=== PATIENT | female | born 1995 | race Caucasian/White ===

== ENCOUNTER 2017-08-07 13:50 | Emergency (ER) | payer BC ==
[2017-08-07] MEDS ORDERED: Sodium Chloride 0.9% 1,000 ML IV ONE (14:04)
[2017-08-07] MEDS ORDERED: Insulin Regular, Human 100 Units/ML 3 ML Vial IVPUSH ONE (14:30)
[2017-08-07] MEDS ORDERED: NS + KCl 20mEq/L 1,000 ML IV SCH (15:30)
--- NOTE | 2017-08-07 18:04 | EDM.PDOC ---
ED HPI GENERAL MEDICAL PROBLEM - General Chief Complaint: Diabetic Complaint Stated Complaint: CHEST PAIN Time Seen by Provider: 08/07/17 13:52 Source of Information: Reports: Patient, Family History Limitations: Reports: No Limitations - History of Present Illness INITIAL COMMENTS - FREE TEXT/NARRATIVE: Patient is a 22 year old woman who has had Type 1 Diabetes since age 10. Last night her Dad came to stay over night with her at her college apartment to go to the football game today. They did not eat breakfast and had not eaten lunch when they got to the football game. She was cold and she drank a hot cup of cappacino coffee very quickly. Soon after that she got chest pain and felt very anxious. That is when she came to the hospital. Her initial glucose on the glucometer was 550 and her initial blood glucose by venipuncture was over 725. She was very cold and diaphoretic and felt awful when she came in. Onset: Today, Sudden Onset Date: 08/07/17 Onset Time: 13:30 Duration: Minutes: (30) Location: Reports: Chest, Generalized Quality: Reports: Ache Severity: Moderate Improves with: Reports: None Worsens with: Reports: None Context: Reports: Other (Type 1 Diabetic not eating normally nor taking her Insulin today.) Associated Symptoms: Reports: Diaphoresis - Related Data Allergies Allergy/AdvReac Type Severity Reaction Status Date / Time naproxen [From Naprosyn] Allergy Rash Verified 08/07/17 18:18 Home Meds: Home Meds Enalapril Maleate 1 tab PO DAILY 08/07/17 [History] Insulin Aspart [Novolog Flexpen] 1 unit SQ TID MDD 45 08/07/17 [History] Insulin Glarg,Human.Rec.Analog [Lantus Solostar] 18 units SQ DAILY 08/07/17 [ History] Levothyroxine 25 mcg PO ACBREAKFAST 08/07/17 [History] Past Medical History Endocrine/Metabolic History: Reports: Diabetes, Type I, Hyperthyroidism Social & Family History - Tobacco Use Smoking Status *Q: Never Smoker Second Hand Smoke Exposure: No - Caffeine Use Caffeine Use: Reports: Coffee - Recreational Drug Use Recreational Drug Use: No ED ROS GENERAL - Review of Systems Review Of Systems: See Below Constitutional: Reports: Weakness, Decreased Appetite, Other (diaphoresis) HEENT: Reports: No Symptoms Respiratory: Reports: No Symptoms Cardiovascular: Reports: No Symptoms Endocrine: Reports: No Symptoms GI/Abdominal: Reports: No Symptoms : Reports: No Symptoms Musculoskeletal: Reports: No Symptoms Skin: Reports: Diaphoresis Neurological: Reports: No Symptoms Psychiatric: Reports: No Symptoms Hematologic/Lymphatic: Reports: No Symptoms ED EXAM GENERAL NO PERIP PULSE - Physical Exam Exam: See Below Exam Limited By: No Limitations General Appearance: Alert, WD/WN, No Apparent Distress Eye Exam: Bilateral Eye: EOMI, Normal Fundi, Normal Inspection, PERRL Ears: Normal External Exam, Normal Canal, Hearing Grossly Normal, Normal TMs Nose: Normal Inspection, Normal Mucosa, No Blood Throat/Mouth: Normal Inspection, Normal Lips, Normal Teeth, Normal Gums, Normal Oropharynx, Normal Voice, No Airway Compromise Head: Atraumatic Neck: Normal Inspection, Supple, Non-Tender, Full Range of Motion Respiratory/Chest: No Respiratory Distress Cardiovascular: Normal Peripheral Pulses, Regular Rate, Rhythm, No Edema, No Gallop, No JVD, No Murmur, No Rub GI/Abdominal: Normal Bowel Sounds Extremities: Normal Inspection, Normal Range of Motion, Non-Tender, Normal Capillary Refill, No Pedal Edema Neurological: Alert, Oriented, CN II-XII Intact, Normal Cognition, Normal Gait, Normal Reflexes, No Motor/Sensory Deficits Psychiatric: Normal Affect, Normal Mood Course - Vital Signs Text/Narrative:: Patient's labs showed she was in Ketoacidosis. She was given a Liter of Normal Saline bolus while we were awaiting our her lab results. Her lab results showed that she was in Diabetic Ketoacidosis. An Insulin drip was started along with 0.9 NS with 20 meq KCL at 500 ml/hour. Dr. Thompson will admit her into the ICU for close evaluation and treatment along with Telemetry in the ICU. Care has been turned over to Dr. Thompson. Last Recorded V/S: Last Vital Signs Temp 35.8 C 08/07/17 13:50 Pulse 133 H 08/07/17 13:50 Resp 26 H 08/07/17 13:50 BP 128/83 08/07/17 13:50 Pulse Ox 98 08/07/17 13:50 - Orders/Labs/Meds Orders: Active Orders 24 hr Category Date Time Status EKG Documentation Completion [RC] ASDIRECTED Care 08/07/17 14:03 Active CXR [Chest 1V Frontal] [CR] Stat Exams 08/07/17 14:04 Taken BASIC METABOLIC PANEL,BMP [CHEM] Stat Lab 08/07/17 19:00 Ordered Insulin Regular, Human [HumuLIN R] 100 unit Med 08/07/17 14:15 Active Sodium Chloride 0.9% [Normal Saline] 99 ml IV TITRATE NS + KCl 20mEq/L [Normal Saline with 20 mEq KCl] 1,000 Med 08/07/17 15:30 Active ml IV ASDIRECTED EKG 12 Lead [EK] Routine Ther 08/07/17 14:03 Ordered Medication Orders Insulin Human Regular 100 unit (/ Sodium Chloride) 100 mls @ 5.23 mls/hr IV TITRATE BRITTANEY; 0.1 UNITS/KG/HR PRN Reason: Protocol Last Titration: 08/07/17 17:35 Dose: 0.05 units/kg/hr, 2.9 mls/hr Titration: 08/07/17 16:02 Dose: 0.07 units/kg/hr, 3.9 mls/hr Admin: 08/07/17 14:42 Dose: 0.1 units/kg/hr, 5.23 mls/hr Potassium Chloride/Sodium Chloride (Normal Saline With 20 Meq Kcl) 1,000 mls @ 500 mls/hr IV ASDIRECTED BRITTANEY Last Admin: 08/07/17 15:45 Dose: 500 mls/hr Labs: Laboratory Tests 08/07/17 08/07/17 08/07/17 Range/Units 13:56 14:05 14:05 WBC 10.6 (4.5-12.0) X10-3/uL RBC 5.08 (3.23-5.20) x10(6)uL Hgb 14.5 (11.5-15.5) g/dL Hct 44.0 (30.0-51.3) % MCV 86.6 (80-96) fL MCH 28.6 (27.7-33.6) pg MCHC 33.0 (32.2-35.4) g/dL RDW 12.9 (11.5-15.5) % Plt Count 484 H (125-369) X10(3)uL MPV 8.3 (7.4-10.4) fL Neut % (Auto) 66.7 (46-82) % Lymph % (Auto) 25.2 (13-37) % [place] % (Auto) 6.5 (4-12) % Eos % (Auto) 1 (1.0-5.0) % Baso % (Auto) 1 (0-2) % Neut # (Auto) 7.0 (1.6-8.3) # Lymph # (Auto) 2.7 (0.6-5.0) # [place] # (Auto) 0.7 (0.0-1.3) # Eos # (Auto) 0.1 (0.0-0.8) # Baso # (Auto) 0.1 (0.0-0.2) # Sodium 128 L (135-145) mmol/L Potassium 4.4 (3.5-5.3) mmol/L Chloride 90 L (100-110) mmol/L Carbon Dioxide 15 L (23-29) mmol/L BUN 14 (5-20) mg/dL Creatinine 0.9 (0.6-1.3) mg/dL Est Cr Clr Drug Dosing TNP Estimated GFR (MDRD) > 60 (>60) BUN/Creatinine Ratio 15.6 (9-20) Glucose 717 H* (80-116) mg/dL POC Glucose > 500 H* (80-116) mg/dL Calcium 9.2 (8.6-10.2) mg/dL Total Bilirubin 2.1 H (0.1-1.3) mg/dL AST 21 (5-27) IU/L ALT 23 (14-26) IU/L Alkaline Phosphatase 75 (56-112) IU/L Troponin I (0.02-0.06) NG/ML Total Protein 7.8 (6.0-8.0) g/dL Albumin 4.3 (3.5-5.2) g/dL Globulin 3.5 g/dL Albumin/Globulin Ratio 1.2 HCG, Quant (2.0 - ) mIU/mL Urine Color (YELLOW) Urine Appearance (CLEAR) Urine pH (5.0-6.5) Ur Specific [place] (1.010-1.025) Urine Protein (NEGATIVE) mg/dL Urine Glucose (UA) (NEGATIVE) mg/dL Urine Ketones (NEGATIVE) mg/dL Urine Occult Blood (NEGATIVE) Urine Nitrite (NEGATIVE) Urine Bilirubin (NEGATIVE) Urine Urobilinogen (NEGATIVE) mg/dL Ur Leukocyte Esterase (NEGATIVE) Urine RBC (0) Urine WBC (0) Ur Squamous Epith Cells (NS,R,O) Urine Bacteria (NS) 08/07/17 08/07/17 08/07/17 Range/Units 14:05 14:05 15:25 WBC (4.5-12.0) X10-3/uL RBC (3.23-5.20) x10(6)uL Hgb (11.5-15.5) g/dL Hct (30.0-51.3) % MCV (80-96) fL MCH (27.7-33.6) pg MCHC (32.2-35.4) g/dL RDW (11.5-15.5) % Plt Count (125-369) X10(3)uL MPV (7.4-10.4) fL Neut % (Auto) (46-82) % Lymph % (Auto) (13-37) % [place] % (Auto) (4-12) % Eos % (Auto) (1.0-5.0) % Baso % (Auto) (0-2) % Neut # (Auto) (1.6-8.3) # Lymph # (Auto) (0.6-5.0) # [place] # (Auto) (0.0-1.3) # Eos # (Auto) (0.0-0.8) # Baso # (Auto) (0.0-0.2) # Sodium (135-145) mmol/L Potassium (3.5-5.3) mmol/L Chloride (100-110) mmol/L Carbon Dioxide (23-29) mmol/L BUN (5-20) mg/dL Creatinine (0.6-1.3) mg/dL Est Cr Clr Drug Dosing Estimated GFR (MDRD) (>60) BUN/Creatinine Ratio (9-20) Glucose (80-116) mg/dL POC Glucose > 500 H* (80-116) mg/dL Calcium (8.6-10.2) mg/dL Total Bilirubin (0.1-1.3) mg/dL AST (5-27) IU/L ALT (14-26) IU/L Alkaline Phosphatase (56-112) IU/L Troponin I < 0.01 L (0.02-0.06) NG/ML Total Protein (6.0-8.0) g/dL Albumin (3.5-5.2) g/dL Globulin g/dL Albumin/Globulin Ratio HCG, Quant 3 (2.0 - ) mIU/mL Urine Color (YELLOW) Urine Appearance (CLEAR) Urine pH (5.0-6.5) Ur Specific [place] (1.010-1.025) Urine Protein (NEGATIVE) mg/dL Urine Glucose (UA) (NEGATIVE) mg/dL Urine Ketones (NEGATIVE) mg/dL Urine Occult Blood (NEGATIVE) Urine Nitrite (NEGATIVE) Urine Bilirubin (NEGATIVE) Urine Urobilinogen (NEGATIVE) mg/dL Ur Leukocyte Esterase (NEGATIVE) Urine RBC (0) Urine WBC (0) Ur Squamous Epith Cells (NS,R,O) Urine Bacteria (NS) 08/07/17 08/07/17 08/07/17 Range/Units 15:40 15:40 15:45 WBC (4.5-12.0) X10-3/uL RBC (3.23-5.20) x10(6)uL Hgb (11.5-15.5) g/dL Hct (30.0-51.3) % MCV (80-96) fL MCH (27.7-33.6) pg MCHC (32.2-35.4) g/dL RDW (11.5-15.5) % Plt Count (125-369) X10(3)uL MPV (7.4-10.4) fL Neut % (Auto) (46-82) % Lymph % (Auto) (13-37) % [place] % (Auto) (4-12) % Eos % (Auto) (1.0-5.0) % Baso % (Auto) (0-2) % Neut # (Auto) (1.6-8.3) # Lymph # (Auto) (0.6-5.0) # [place] # (Auto) (0.0-1.3) # Eos # (Auto) (0.0-0.8) # Baso # (Auto) (0.0-0.2) # Sodium (135-145) mmol/L Potassium 4.4 (3.5-5.3) mmol/L Chloride (100-110) mmol/L Carbon Dioxide (23-29) mmol/L BUN (5-20) mg/dL Creatinine (0.6-1.3) mg/dL Est Cr Clr Drug Dosing Estimated GFR (MDRD) (>60) BUN/Creatinine Ratio (9-20) Glucose 563 H* D (80-116) mg/dL POC Glucose (80-116) mg/dL Calcium (8.6-10.2) mg/dL Total Bilirubin (0.1-1.3) mg/dL AST (5-27) IU/L ALT (14-26) IU/L Alkaline Phosphatase (56-112) IU/L Troponin I (0.02-0.06) NG/ML Total Protein (6.0-8.0) g/dL Albumin (3.5-5.2) g/dL Globulin g/dL Albumin/Globulin Ratio HCG, Quant (2.0 - ) mIU/mL Urine Color Yellow (YELLOW) Urine Appearance Clear (CLEAR) Urine pH 5.0 (5.0-6.5) Ur Specific [place] 1.020 (1.010-1.025) Urine Protein Negative (NEGATIVE) mg/dL Urine Glucose (UA) >1000 H (NEGATIVE) mg/dL Urine Ketones 150 H (NEGATIVE) mg/dL Urine Occult Blood Negative (NEGATIVE) Urine Nitrite Negative (NEGATIVE) Urine Bilirubin Negative (NEGATIVE) Urine Urobilinogen Normal (NEGATIVE) mg/dL Ur Leukocyte Esterase Negative (NEGATIVE) Urine RBC 0-5 (0) Urine WBC 0-5 (0) Ur Squamous Epith Cells Few H (NS,R,O) Urine Bacteria Rare H (NS) 08/07/17 08/07/17 08/07/17 Range/Units 17:03 18:13 19:02 WBC (4.5-12.0) X10-3/uL RBC (3.23-5.20) x10(6)uL Hgb (11.5-15.5) g/dL Hct (30.0-51.3) % MCV (80-96) fL MCH (27.7-33.6) pg MCHC (32.2-35.4) g/dL RDW (11.5-15.5) % Plt Count (125-369) X10(3)uL MPV (7.4-10.4) fL Neut % (Auto) (46-82) % Lymph % (Auto) (13-37) % [place] % (Auto) (4-12) % Eos % (Auto) (1.0-5.0) % Baso % (Auto) (0-2) % Neut # (Auto) (1.6-8.3) # Lymph # (Auto) (0.6-5.0) # [place] # (Auto) (0.0-1.3) # Eos # (Auto) (0.0-0.8) # Baso # (Auto) (0.0-0.2) # Sodium (135-145) mmol/L Potassium 4.0 (3.5-5.3) mmol/L Chloride (100-110) mmol/L Carbon Dioxide (23-29) mmol/L BUN (5-20) mg/dL Creatinine (0.6-1.3) mg/dL Est Cr Clr Drug Dosing Estimated GFR (MDRD) (>60) BUN/Creatinine Ratio (9-20) Glucose 321 H D (80-116) mg/dL POC Glucose 205 H D 196 H (80-116) mg/dL Calcium (8.6-10.2) mg/dL Total Bilirubin (0.1-1.3) mg/dL AST (5-27) IU/L ALT (14-26) IU/L Alkaline Phosphatase (56-112) IU/L Troponin I (0.02-0.06) NG/ML Total Protein (6.0-8.0) g/dL Albumin (3.5-5.2) g/dL Globulin g/dL Albumin/Globulin Ratio HCG, Quant (2.0 - ) mIU/mL Urine Color (YELLOW) Urine Appearance (CLEAR) Urine pH (5.0-6.5) Ur Specific [place] (1.010-1.025) Urine Protein (NEGATIVE) mg/dL Urine Glucose (UA) (NEGATIVE) mg/dL Urine Ketones (NEGATIVE) mg/dL Urine Occult Blood (NEGATIVE) Urine Nitrite (NEGATIVE) Urine Bilirubin (NEGATIVE) Urine Urobilinogen (NEGATIVE) mg/dL Ur Leukocyte Esterase (NEGATIVE) Urine RBC (0) Urine WBC (0) Ur Squamous Epith Cells (NS,R,O) Urine Bacteria (NS) Meds: Medications Generic Name Dose Route Start Last Admin Trade Name Freq PRN Reason Stop Dose Admin Insulin Human Regular 100 unit 100 mls @ 5.23 mls/hr 08/07/17 14:15 08/07/17 17:35 / Sodium Chloride IV 0.05 units/kg/hr TITRATE BRITTANEY 2.9 mls/hr Protocol Titration 0.1 UNITS/KG/HR Potassium Chloride/Sodium Chloride 1,000 mls @ 500 mls/hr 08/07/17 15:30 15:45 Normal Saline With 20 Meq Kcl IV 500 mls/hr ASDIRECTED BRITTANEY Administration Discontinued Medications Generic Name Dose Route Start Last Admin Trade Name Freq PRN Reason Stop Dose Admin Sodium Chloride 1,000 mls @ 1,000 mls/hr 08/07/17 14:04 08/07/17 14:05 Normal Saline IV 08/07/17 15:03 1,000 mls/hr .BOLUS ONE Administration Insulin Human Regular 10 unit 08/07/17 14:30 08/07/17 14:41 Humulin R IVPUSH 08/07/17 14:31 10 units ONETIME ONE Administration Departure - Departure Time of Disposition: 19:20 Disposition: Still A Patient 30 Condition: Good Clinical Impression: Diabetic ketoacidosis - Discharge Information Referrals: PCP,Not In Area [Primary Care Provider] - Forms: ED Department Discharge - My Orders Last 24 Hours: My Active Orders 08/07/17 14:03 EKG Documentation Completion [RC] ASDIRECTED EKG 12 Lead [EK] Routine 08/07/17 14:04 CXR [Chest 1V Frontal] [CR] Stat 08/07/17 14:15 Insulin Regular, Human [HumuLIN R] 100 unit Sodium Chloride 0.9% [Normal Saline] 99 ml IV TITRATE 08/07/17 15:30 NS + KCl 20mEq/L [Normal Saline with 20 mEq KCl] 1,000 ml IV ASDIRECTED - Assessment/Plan Last 24 Hours: My Active Orders 08/07/17 14:03 EKG Documentation Completion [RC] ASDIRECTED EKG 12 Lead [EK] Routine 08/07/17 14:04 CXR [Chest 1V Frontal] [CR] Stat 08/07/17 14:15 Insulin Regular, Human [HumuLIN R] 100 unit Sodium Chloride 0.9% [Normal Saline] 99 ml IV TITRATE 08/07/17 15:30 NS + KCl 20mEq/L [Normal Saline with 20 mEq KCl] 1,000 ml IV ASDIRECTED
[2017-08-07 20:10] VITALS: BP 126/82
--- NOTE | 2017-08-08 00:26 | ER ---
DATE SEEN: 08/07/2017 ADDENDUM: I was asked to take over for this patient who has DKA and was admitted to the ER with IV fluids. When I came in, she had completed the evening meal. Complains of no dizziness, chest pain, or shortness of breath. No fever. No dysuria. PHYSICAL EXAMINATION: GENERAL: She appears well hydrated. VITAL SIGNS: Blood pressure is 128/83, pulse is 133, and respiratory rate is 26, oxygenation is 98% on room air. ENT: Negative. CHEST: Clear. CARDIOVASCULAR: Mild tachycardia. LAB STUDIES: The latest lab studies showed a glucose of 219, bicarb of 19, and sodium 133 with anion gap calculated at 10. IMPRESSION: Diabetic ketoacidosis, resolved. PLAN: The patient was discharged home and instructions to monitor sugars hourly. Take insulin as needed. Return to the ED p.r.n. She will see physician next week in [place]. Dad was with her. TIME OF DISCHARGE: 7:55 p.m. /[id number] MIRTHA/ROSA ISELA
--- NOTE | 2017-08-09 14:41 | CR ---
INDICATION: Chest pain. CHEST: Portable AP upright view of the chest was obtained 08/07/2017. No comparisons were available. Heart, mediastinum, and bony thorax were unremarkable. An active infiltrate or effusion or pneumothorax was not identified. Overlying EKG leads are noted. Overlying artifacts are noted. IMPRESSION: No active disease. MTDD
== END 2017-08-07 19:59 | disposition home or self-care (01) ==
LOC: FB.ED 13:50
DX: E10.10 Type 1 diabetes mellitus with ketoacidosis without coma (principal); E05.90 Thyrotoxicosis, unspecified without thyrotoxic crisis or storm; Z88.8 Allergy status to other drugs, medicaments and biological substances; Z79.4 Long term (current) use of insulin
CPT/HCPCS: 36415; 71010; 80048; 80053; 81001; 82947; 82962; 84132; 84484; 84702; 85025; 93005; 96365; 96366; 99285; J1815; J3480; J7030; J7040